=== PATIENT | female | born 1995 | race Caucasian/White ===

== ENCOUNTER → 2017-05-19 22:18 | Observation (INO) ==
[2017-05-19 19:31] VITALS: BP 120/72
[2017-05-19 20:02] LABS: Bilirubin,Urine Negative (Negative); Blood,Urine Negative (Negative); Clarity,Urine Clear (Clear); Color,Urine Yellow (Yellow); Glucose,Urine (UA) Normal (Normal); Ketones,Urine 40 mg/dL (Negative); Leukocyte Esterase,Urine Negative (Negative); Nitrite,Urine Negative (Negative); Protein,Urine Negative (Neg-Trace); Specific Gravity,Urine 1.018 (1.010-1.025); Urobilinogen,Urine Normal (Normal)
--- NOTE | 2017-05-19 20:49 | OB/GYN Progress Note ---
Date of Encounter: 05/19/17 Time of Encounter: 20:47 - Assessment and Plan (1) 35 weeks gestation of Current Visit: Yes Status: Acute (2) Cramping affecting , antepartum Current Visit: Yes Status: Acute (3) NST (non-stress test) reactive Current Visit: Yes Status: Acute Subjective - Subjective Principal diagnosis: pre-term uterine contractions Interval history: 21 y/o presents at 35w5d with c/o cramping since 1pm today, 05/19. Denies spotting or bloody discharge, endorses a small amount of scant clear fluid. + movement each hour. No other complaints. Antepartum ROS: movement normal, contractions, no loss of fluid, no vaginal bleeding Objective - Vital Signs Vital Signs: Vital Signs Temp Pulse Resp BP 05/19/17 19:29 97.8 F 72 15 120/72 Intake and Output 05/19/17 05/19/17 05/19/17 07:59 15:59 23:59 Other: Weight 64.8 kg Patient Weight 05/19/17 23:59 Weight 64.8 kg - Exam FHR: auscultation normal Auscultation: bilateral: normal Abdomen: Present: normal appearance Cervical dilation: 2 Cervix effacement: 60 station: 0 - Labs Labs: Abnormal lab results Urine Ketones 40 mg/dL (Negative) H 05/19/17 19:38
[~2017-05-19 22:18] MED LIST: *HR* Morphine 10 MG/ML VIAL SQ ONE
== END | disposition home or self-care (01) ==
LOC: 1NENULAB
PROVIDERS: ADMIT Obstetrics & Gynecology; ATTEND Obstetrics & Gynecology

== ENCOUNTER → 2017-05-22 22:59 | Observation (INO) ==
--- NOTE | 2017-05-22 22:41 | OB/GYN Progress Note ---
Date of Encounter: 05/22/17 Time of Encounter: 22:07 - Assessment and Plan (1) 36 weeks gestation of Current Visit: Yes Status: Acute (2) Cramping affecting , antepartum Current Visit: No Status: Acute Pt with minimal cervical change from office. Follow up exam unchanged from admission cervical exam. No leaking of fluid or vaginal bleeding observed by RN during vaginal exam. Discharged home with labor precautions, when to return to triage or call provider. Pt verbalizes understanding. (3) NST (non-stress test) reactive Current Visit: No Status: Acute Baseline 125 Subjective - Subjective Interval history: 36+1 presents with increasing contractions and vaginal discharge that was slightly pink in color. Pt reports good movement, or leaking of clear fluid. Antepartum ROS: new complaints, vaginal bleeding, movement normal, contractions, no loss of fluid Objective - Vital Signs Vital Signs: Intake and Output 05/22/17 05/22/17 05/22/17 07:59 15:59 23:59 Other: Weight 65.8 kg Patient Weight 05/22/17 23:59 Weight 65.8 kg - Exam FHR: auscultation normal FHR comments: 125/moderate/+accels Abdomen: Present: normal appearance, soft, gravid Cervical dilation: 380 per RN
== END | disposition home or self-care (01) ==
LOC: 1NENULAB
PROVIDERS: ADMIT Advanced Practice Midwife; ATTEND Advanced Practice Midwife

== ENCOUNTER → 2017-05-28 19:11 | Observation (INO) ==
--- NOTE | 2017-05-28 16:08 | OB/GYN Progress Note ---
Date of Encounter: 05/28/17 Time of Encounter: 16:04 - Assessment and Plan (1) 37 weeks gestation of Current Visit: Yes Status: Acute (2) Uterine contractions Current Visit: Yes Status: Acute Monitored in labor and delivery for over 3 hours no change on 2 follow up cervical exams by this CNM, cervix remains 3/80/-1. UA with reflex Baseline initially appeared with baseline of 145 after 1L bolus baseline 115 with accels. Very active fetus. BPP performed by Dr. Lopes 05/27 RENNY of 12.6 Pt still having pain with contractions. will give 10 of morphine SQ and 12.5 of phenergan IV for therapeutic rest and then discharge to home. Plan discussed with . Subjective - Subjective Interval history: complains of contractions for the last couple days increasing in strength this morning. Sent over from office for labor evaluation. Pt states they are occuring every 5 minutes and rates them 10/10 pain. breathing calmly during contractions. Reports good movement, denies vaginal bleeding, or leaking of fluid. Also denies headache, visual changes, RUQ pain, dysuria, or urgency with urination. Antepartum ROS: new complaints, movement normal, contractions, no loss of fluid, no vaginal bleeding Objective - Exam Auscultation: bilateral: normal Abdomen: Present: normal appearance, soft, gravid Uterus: Present: normal Cervical dilation: 3/80/-1
[2017-05-28 16:42] VITALS: BP 127/74
[~2017-05-28 19:11] MED LIST changes: +*HR* Promethazine 25 MG/ML VIAL IVP PRN; +Ringers Solution, Lactated 1,000 ML IVC SCH; +Ringers Solution, Lactated 1,000 ML ONE
[2017-05-28 19:16] LABS: Bilirubin,Urine Negative (Negative); Blood,Urine Negative (Negative); Clarity,Urine Clear (Clear); Color,Urine Yellow (Yellow); Glucose,Urine (UA) Normal (Normal); Ketones,Urine 15 mg/dL (Negative); Leukocyte Esterase,Urine Negative (Negative); Nitrite,Urine Negative (Negative); Protein,Urine Trace mg/dL (Neg-Trace); Urobilinogen,Urine Normal (Normal)
[2017-05-28 19:20] LABS: Bacteria,Urine None Seen per hpf (None-Few); Hyaline Casts,Urine None Seen per lpf (None-Few); RBC,Urine 0-3 per hpf (0-3); Squamous Epithelial Cell,Urine Many per lpf (None-Few); WBC,Urine 0-3 per hpf (0-3)
== END | disposition home or self-care (01) ==
LOC: 1NENULAB
PROVIDERS: ADMIT Obstetrics & Gynecology; ATTEND Obstetrics & Gynecology

== ENCOUNTER 2017-06-08 16:22 | Inpatient (IN) ==
[~2017-06-08 16:22] MED LIST changes: -*HR* Morphine 10 MG/ML VIAL SQ ONE; -*HR* Promethazine 25 MG/ML VIAL IVP PRN; +Famotidine 20 MG/2 ML VIAL IVP PRN; +Metoclopramide 10 MG/2 ML VIAL IVP PRN; +Naloxone 0.4 MG/ML INJ IVP PRN; +Ondansetron 4 MG/2 ML VIAL IVP PRN; -Ringers Solution, Lactated 1,000 ML IVC SCH; -Ringers Solution, Lactated 1,000 ML ONE
[2017-06-08] MEDS ORDERED: Ringers Solution, Lactated 1,000 ML IVC SCH (16:30)
[2017-06-08 16:36] LABS: Basophils % 0.2 %; Eosinophils % 0.1 %; Hematocrit 39.6 % (35.3-44.9); Hemoglobin 13.7 g/dL (11.5-15.4); Immature Granulocytes % 1.4 % (0-4); Lymphocytes # 1.7 K/mcL (0.6-4.6); Lymphocytes % 13.8 %; Mean Corpuscular HGB Conc 34.6 g/dL (31.6-35.5); Mean Corpuscular Hemoglobin 31.3 pg (28.0-33.3); Mean Corpuscular Volume 90.4 fL (83.0-100.0); Mean Platelet Volume 11.7 fL (9.4-12.4); Monocytes # 0.6 K/mcL (0.0-1.3); Neutrophils # 9.9 K/mcL (1.6-8.9); Platelet Count 150 K/mcL (140-400); Red Blood Count 4.38 M/mcL (3.82-4.97); Red Cell Distribution Width 12.9 % (11.5-14.5); Segmented Neutrophils % 79.5 %
--- NOTE | 2017-06-08 16:56 | OB/GYN History & Physical ---
Date of Encounter: 06/08/17 Time of Encounter: 16:48 Assessment and Plan (1) 38 weeks gestation of Current visit: Yes Status: Acute (2) SROM (spontaneous rupture of membranes) Current visit: Yes Status: Acute admit to labor and delivery, GBS negative Nubain and epidural as desires Anticipate History of Present Illness Chief complaint: Contractions and leaking fluid HPI: Ms. Colmenares is a 21 year old female presents to triage with SROM at 1400 of clear fluid, nitrizine +. Pt states contractions have been occurring for the last week. Pt states she has had decreased movement for the today and did not have movement until getting a a soda at the gas station on the way to the hospital. Labs: B+, Rubella and varicella immune, all other serologies negative. Past Med Surg Social Fam HX - Past Medical History Source: patient Medical history: non-contributory, other Psychiatric history: no psych history - Past Surgical History Surgical History: other - Social History Smoking Status: Current every day smoker Packs per day: 0.5 Smokeless Tobacco Status: No Alcohol use: none Drug use: none - Family History Mother Adopted: No Living Status: Still Living Hx Family Cardiac Disorders: No Hx Family Respiratory Disorders: No Hx Family Cancer: No Hx Family GI Disorders: No Hx Family Genitourinary Disorders: No Hx Family Endocrine Disorder: No Hx Family Musculoskeletal Disorders: No Hx Family Neuromuscular Disorders: No Hx Family Neurologic Disorders: No Hx Family HEENT Disorders: No Hx Family Autoimmune Disorders: No Hx Family Reproductive Disorders: No Hx Family Psychosocial Disorders: No Hx Family Medical Disorders: No Obstetrical History - Pregnancies : 2 Para: 1 Term: 1 : 0 Ab's: 0 Livin Medications and Allergies Formula Tablet 1 tab PO DAILY 05/19/17 [History] Promethazine 12.5 mg PO Q6H PRN 05/19/17 [History] Vistaril 06/08/17 [History] 3 Allergy/AdvReac Type Severity Reaction Status Date / Time No Known Allergies Allergy Verified 05/28/16 21:20 Exam - Constitutional Constitutional: well developed, well nourished, no acute distress, average body habitus - Neck Neck exam: full ROM - Lungs Respiratory exam: CTAB - Cardiovascular Cardiovascular exam: RRR - Abdomen Abdomen: Present: bowel sounds normal, gravid, non tender - Extremities Extremities exam: normal capillary refill, normal inspection - Cervix Dilation: 4 (Per RN) Results Result Diagrams: 06/08/17 16:25 Abnormal lab results WBC 12.5 K/mcL (4.3-11.1) H 06/08/17 16:25 Neutrophils # 9.9 K/mcL (1.6-8.9) H 06/08/17 16:25 All other labs normal. - VTE Reasons for not Prescribing Prophylaxis: Treatment not Indicated - Low risk for VTE
[2017-06-08] MEDS ORDERED: *HR* FentaNYL (PF) 100 MCG/2 ML VIAL EP ONE (16:57)
[2017-06-08] MEDS ORDERED: Ringers Solution, Lactated 500 ML IVC ONE (16:57)
[2017-06-08] MEDS ORDERED: EPHEDrine 50 MG/ML VIAL IVP PRN (16:57)
[2017-06-08] MEDS ORDERED: *HR* Ropivacaine/PF 0.2% 10 ML AMPUL EP ONE (16:57)
[2017-06-08] MEDS ORDERED: Epidural Premix (fent/bupiv) 110 ML EP SCH (17:00)
--- NOTE | 2017-06-08 17:04 | Anesthesia Evaluation PreOp ---
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 Other Medical History: Denies Any Significant HX Anesthesia History: No Prior Anesthetic Complications, Past Anesthesia ( Hysteroscopy) : Yes Alcohol Use: none Drug use: none Medications and Allergies Formula Tablet 1 tab PO DAILY 05/19/17 [History] Promethazine 12.5 mg PO Q6H PRN 05/19/17 [History] Vistaril 06/08/17 [History] 3 Allergy/AdvReac Type Severity Reaction Status Date / Time No Known Allergies Allergy Verified 05/28/16 21:20 - Meds/Allergy Pre-op Review Medications Reviewed: Yes Allergies Reviewed: Yes Anesthesia Results - Labs 06/08/17 16:25 Anesthesia Exam Height: 1.63 Weight: 66.4kg NPO (# of Hours): >4hr Pain Scale: 9 (With contractions) Pain Scale Used: Numeric (1 - 10) - HEENT Pupil (Motor): Pupils equal Mallampati: II Teeth: Poor dentition Oral Opening: Greater than 3 - CLEANING MACHINE OPERATOR LOC: Oriented CLEANING MACHINE OPERATOR Motor: Normal RUE, Normal LUE, Normal RLE, Normal LLE, Normal Face CLEANING MACHINE OPERATOR Sensory: Normal: RUE, LUE, RLE, LLE, Face - Cardiac Rhythm: Regular Murmur: None JVD: No Carotid Bruit: No - Pulmonary Breath Sounds: bilateral Clear Respiratory Effort: Symmetrical Anesthesia Assess/Plan ASA Score: 2 Modified [place] Scale for Level of Consciousness: Cooperative, oriented, and tranquil Anesthetic Plan: Regional Monitoring Plan: Standard Monitors Recovery Plan: Other
[2017-06-08] MEDS ORDERED: Epidural Premix (fent/bupiv) 110 ML EP ONE (17:08)
[2017-06-08] MEDS ORDERED: Ringers Solution, Lactated 1,000 ML ONE (17:09)
--- NOTE | 2017-06-08 17:33 | Anesthesia Procedures ---
Date of Encounter: 06/08/17 Time of Encounter: 17:10 Procedures: Anesthesia - Epidural/Spinal Patient ID/Chart reviewed: Yes Patient examined: Yes OB Eval: Gestational age: 38.6 OB Eval: : 2 OB Eval: Hx Para: 1 OB Eval: Dilated at (cm): 4 OB Eval: Contractions: Non-stressed pattern Consent Obtained: Yes Supplemental Oxygen: None/Room Air Site Prep: Aseptic Technique, Sterile prep and drape, 0.5% Chlorhexidine/Alcohol Patient position: upright Local Anesthetic: Lidocaine 1% Amount of Local Anesthetic used: 2.5 Touhy Needle Gauge: 18 Touhy Needle Depth (cm): 6 Catheter Depth at Skin (cm): 13 Test Dose (1.5% Lido + Epi): Volume given (mls): 5 Test Dose Result: Negative Loading Dose: Other: Ropivacaine 0.5% 10mL Loading Dose Administered: Thru Catheter Infusion Med: 0.125% Bupivacaine w/ 2 mcg/ml Fentanyl Infusion Rate (mls/hr): 15 (Bolus 5mL q15min; Max 3/hr) Catheter Secured in Place: Tegaderm, Tape Interspace Used: L3-L4 Loss of Resistance (ANDREAS): Yes Blood: No CSF: No Paresthesia: No Procedure: x1 attempt. Patient tolerated well. Vitals + FHT's: VSS and FHR stable throughout. See nursing documentation.
[2017-06-08] MEDS ORDERED: Oxytocin 20 units/ LR 1000 mL 20 UNIT/1,000 ML BAG IVC ONE (18:28)
--- NOTE | 2017-06-08 18:28 | OB Labor Progress Note ---
Date of Encounter: 06/08/17 Time of Encounter: 18:26 Labor Progress Note - Subjective Subjective: pt comfortable with epidural - Cervix Cervix: Remains 4 per RN - Heart Tones Heart Tones: 110/moderate/+accels/-decels - [place]: 3-10 - Plan Plan: Will start pitocin per policy Anticipate
[2017-06-08] MEDS ORDERED: Oxytocin 20 units/ LR 1000 mL 20 UNIT/1,000 ML BAG IVC SCH ×2 (18:30→23:36)
[2017-06-08] MEDS ORDERED: *HR* FentaNYL (PF) 100 MCG/2 ML VIAL ONE (20:54)
--- NOTE | 2017-06-08 23:34 | OB/GYN Procedure Note ---
Delivery - Delivery Date: 06/08/17 Provider: Lexy Ornelas Intrapartum events: none Delivery augmentation: pitocin Delivery monitor: external FHT, external uterine Anesthesia: epidural Estimated Blood Loss: 100 - (s) Infant A Infant Delivery Date: 06/08/17 Infant Delivery Time: 23:10 Presentation: vertex Position: OA Route of delivery: Gender: Male Viability: Viable Pounds: 7 Ounces: 9 Weight Gram: 3435 kg at 1 minute: 8 at 5 mins: 9 Shoulder Dystocia: encountered Shoulder Dystocia Maneuvers: Cinthia maneuver Specimens collected: cord blood Placenta: spontaneous Cord: 3 umbilical vessels, other (short cord) - Repair Episiotomy: none Laceration Description: None - Complications Delivery complications: none Delivery comments: SROM with pitocin augmentation, progressed to complete, directed maternal bearing down efforts to of liveborn male, Vertex delivered OA, shoulders delivered after maternal repositioning to Cinthia and body easily followed. No nuchal cord encountered. short cord noted, so immediately clammped and cut then vigorous placed on maternal abdomen. Placenta delivered spontaneously (juliann), Perineum intact. EBL 100, mother and infant left bonding in skin to skin. - Disposition Mom disposition: stable in LDR [place] disposition: stable in LDR
[2017-06-08] MEDS ORDERED: Lanolin 7 G OINT...G. TP PRN (23:36)
[2017-06-08] MEDS ORDERED: Acetaminophen 325 MG TABLET PO PRN (23:36)
[2017-06-08] MEDS ORDERED: Benzocaine/Menthol 56 GM AEROSOL SPRAY TP PRN (23:36)
[2017-06-08] MEDS ORDERED: *HR* HYDROcodone/Acet 5/325 mg TABLET PO PRN (23:36)
[2017-06-09] MEDS ORDERED: Ringers Solution, Lactated 1,000 ML ONE (08:10)
[2017-06-09] MEDS ORDERED: ceFAZolin 2,000 MG in D5% in Water 100 ML IVPB ONE (08:11)
--- NOTE | 2017-06-09 08:15 | OB/GYN Progress Note ---
Date of Encounter: 06/09/17 Time of Encounter: 08:10 - Assessment and Plan (1) Status post normal vaginal delivery Current Visit: Yes Status: Acute (2) Family planning advice Current Visit: Yes Status: Acute Patient will be scheduled for bilateral partial salpingectomy this morning Subjective - Subjective Interval history: Patient still desires tubal ligation has been nothing by mouth since midnight. States having minimal cramping and minimal bleeding. Risks and benefits of the tubal ligation was expanded to patient with a failure rate of 5-8 per thousand with increased risk of ectopic if was to occur Patient reports: voiding normally, pain well controlled [place]: doing well Objective - Latest Vital Signs Latest vital signs: Vital Signs Temp Pulse Resp BP Pulse Ox 06/09/17 03:25 98.2 F 51 14 122/76 98 06/09/17 02:15 98.5 F 56 16 146/90 98 06/09/17 01:27 98.4 F 56 18 146/87 99 Intake and Output 06/08/17 06/09/17 06/09/17 23:59 07:59 15:59 Output Total 975 / 975 900 / 900 Balance -975 / -975 -900 / -900 Output: Urine 875 / 875 900 / 900 Estimated Blood Loss 100 / 100 Other: Weight 66.4 kg - Exam Lungs: bilateral: normal Chest: Normal S1, Normal S2 Extremities: Present: normal Abdomen: Present: normal appearance Uterus: Present: normal Uterus Position: At Umbilicus - Labs Labs: Laboratory Results - last 24 hr 06/08/17 16:25 WBC 12.5 H RBC 4.38 Hgb 13.7 Hct 39.6 MCV 90.4 MCH 31.3 MCHC 34.6 RDW 12.9 Plt Count 150 MPV 11.7 Immature Gran % 1.4 Seg Neutrophils % 79.5 Lymphocytes % 13.8 Monocytes % 5.0 Eosinophils % 0.1 Basophils % 0.2 Neutrophils # 9.9 H Lymphocytes # 1.7 Monocytes # 0.6 Eosinophils # 0.0 Basophils # 0.0
--- NOTE | 2017-06-09 08:18 | Anesthesia Evaluation PreOp ---
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 Other Medical History: Denies Any Significant HX, Other (anxiety) Anesthesia History: No Prior Anesthetic Complications, Past Anesthesia ( hysteroscopy for endometriosis, previous epidural with labor) : No Alcohol Use: none Drug use: none Medications and Allergies Formula Tablet 1 tab PO DAILY 05/19/17 [History] Promethazine 12.5 mg PO Q6H PRN 05/19/17 [History] Vistaril 06/08/17 [History] 3 Allergy/AdvReac Type Severity Reaction Status Date / Time No Known Allergies Allergy Verified 05/28/16 21:20 - Meds/Allergy Pre-op Review Medications Reviewed: Yes Allergies Reviewed: No Beta Blockers on Current Med List: No Anesthesia Results - Labs 06/08/17 16:25 Anesthesia Exam Vital Signs Temperature 98.4 F 06/09/17 01:27 Pulse Rate 56 06/09/17 01:27 Respiratory Rate 18 06/09/17 01:27 Blood Pressure 146/87 06/09/17 01:27 O2 Sat by Pulse Oximetry 99 06/09/17 01:27 Temperature 98.0 F 06/09/17 07:30 Pulse Rate 45 06/09/17 07:30 Respiratory Rate 16 06/09/17 07:30 Blood Pressure 137/82 06/09/17 07:30 O2 Sat by Pulse Oximetry 98 06/09/17 03:25 Height: 5'4" Weight: 66.4kg NPO (# of Hours): 8 Pain Scale: 0 Pain Scale Used: Numeric (1 - 10) - HEENT Pupil (Motor): Pupils equal Mallampati: II Teeth: Poor dentition Oral Opening: Greater than 3 - RIBBON WINDER LOC: Oriented RIBBON WINDER Motor: Normal RUE, Normal LUE, Normal RLE, Normal LLE, Normal Face RIBBON WINDER Sensory: Normal: RUE, LUE, RLE, LLE, Face - Cardiac Rhythm: Regular Murmur: None JVD: No Carotid Bruit: No - Pulmonary Breath Sounds: bilateral Clear Respiratory Effort: Symmetrical Anesthesia Assess/Plan ASA Score: 2 Modified [place] Scale for Level of Consciousness: Cooperative, oriented, and tranquil Anesthetic Plan: General Monitoring Plan: Standard Monitors Recovery Plan: PACU
[2017-06-09] MEDS ORDERED: Ondansetron 4 MG/2 ML VIAL ONE (08:22)
[2017-06-09] MEDS ORDERED: Dexamethasone 4 MG/ML VIAL ONE (08:22)
[2017-06-09] MEDS ORDERED: *HR* Midazolam HCl 2 MG/2 ML VIAL ONE (08:22)
[2017-06-09] MEDS ORDERED: *HR* Propofol 200 MG/20 ML VIAL IVP ONE (08:23)
[2017-06-09] MEDS ORDERED: *HR* FentaNYL (PF) 100 MCG/2 ML VIAL ONE (08:23)
[2017-06-09] MEDS ORDERED: Lidocaine -MPF 2% 5 ML VIAL ONE (08:24)
[2017-06-09] MEDS ORDERED: Famotidine 20 MG/2 ML VIAL ONE (08:39)
[2017-06-09] MEDS ORDERED: Prenatal Vit/FA 1 EACH TABLET PO SCH (09:00)
[2017-06-09] MEDS ORDERED: Ketorolac 30 MG/ML VIAL ONE (09:11)
[2017-06-09] MEDS ORDERED: Ondansetron 4 MG/2 ML VIAL IVP ONE (09:40)
[2017-06-09] MEDS ORDERED: *HR* Promethazine 25 MG/ML VIAL IVP PRN (09:40)
[2017-06-09] MEDS ORDERED: Ringers Solution, Lactated 1,000 ML IVC SCH (09:45)
[2017-06-09] MEDS: *HR* HYDROmorphone (PF) 1 MG/ML SYRINGE IVP PRN ×2 (09:52→10:05)
[2017-06-09] MEDS ORDERED: Acetaminophen 325 MG TABLET PO PRN (10:34)
[2017-06-09] MEDS ORDERED: *HR* HYDROcodone/Acet 5/325 mg TABLET PO PRN (10:34)
[2017-06-09] MEDS ORDERED: Lanolin 7 G OINT...G. TP PRN (10:34)
[2017-06-09 12:33] VITALS: BP 128/89
--- NOTE | 2017-06-09 13:10 | Anesthesia Evaluation Post Op ---
Date of Encounter: 06/09/17 Time of Encounter: 13:09 - Vital Signs Vital Signs: Vital Signs Temperature 98.4 F 06/09/17 01:27 Pulse Rate 56 06/09/17 01:27 Respiratory Rate 18 06/09/17 01:27 Blood Pressure 146/87 06/09/17 01:27 O2 Sat by Pulse Oximetry 99 06/09/17 01:27 Temperature 97.7 F 06/09/17 12:30 Pulse Rate 55 06/09/17 12:30 Respiratory Rate 16 06/09/17 12:30 Blood Pressure 128/89 06/09/17 12:30 O2 Sat by Pulse Oximetry 100 06/09/17 10:30 - Lungs Lungs: Clear Ascult./Percussion - Airway Airway: Non-obstructed - Cardiovascular Regular Rate - Mental Status Mental Status: Alert & Oriented, Answers Appropriately - Pain Pain Scale: 2 Pain Scale used: Numeric (1 - 10) - Nausea Vomiting Nausea Vomiting: Not Present - Hydration Hydration: Ice chips - Discharge PostOp Status: Transfer Patient to floor
--- NOTE | 2017-06-09 13:26 | Operative Note ---
Date of procedure: 06/09/17 Pre-op diagnosis: Status post vaginal delivery, desires sterilization Post-op diagnosis: same Procedure: Bilateral partial salpingectomy Complications: none Anesthesia: ALKAA Surgeon: Talon Small Tie Inspector: Alec Freitas ([id number]) Estimated blood loss (cc): 10 Specimen: Portions of the right and left fallopian tube Condition: stable Disposition: other Procedure in Detail: Patient is a 21-year-old female status post vaginal delivery who desired a tubal ligation. Risks and benefits of the tubal were explained to the patient with failure rate of 5-8 per thousand with increased risk of ectopic if was to occur. Procedure: Patient was taken to the operating room and general anesthesia was found be adequate. She was placed in the doral supine position prepped and draped in usual fashion. Timeout was obtained. A small infraumbilical incision was made with a scalpel and carried down through the underlying tissue and fascia was identified tented up and entered sharply. This was extended laterally properitoneum was identified tented up and entered sharply. 2 [employer] [place] retractors were placed through the incision the right fallopian tube was identified and grasped and brought through the incision carried out to the fimbriated end. Using an 0 plain and the distal portion of the tube including the fimbria were then suture ligated 2 before that portion of the tube was removed. Good hemostasis was noted to tube was returned to the abdomen. In a similar fashion left side was identified and grasped both through the incision followed out to the fimbriated end. In a similar fashion the distal end of the tube was then suture ligated with oh plain 2 before the portion of the tube including the fimbria was removed. Good hemostasis was noted both ovaries appeared to be normal and the tube was returned to the abdomen. The fascia was closed using 0 Vicryl in a running stitch and the skin was closed using 4-0 Vicryl in subcuticular manner. Dermabond over the surface. All needles and sponge counts were correct 3
--- NOTE | 2017-06-09 15:06 | Discharge Summary ---
Date of Encounter: 06/09/17 Time of Encounter: 15:09 - Discharge Diagnosis (1) Vaginal delivery Priority: Primary Status: Acute Comments: Doing well s/p day 1 vaginal delivery Discharge home today Follow up in office in 6 weeks or earlier if needed for care/family planning (2) Status post tubal ligation Priority: Primary Status: Acute Comments: Doing well day of tubal ligation Discharge home today Pain well controlled with ordered medication, will provide Rx for norco. OARRS reviewed and appropriate to Rx. Follow up in the office with Dr Small in 2 weeks. - Discharge Medications Prescriptions: HYDROcodone/Acet 5/325 mg [[place] 5-325 mg] 1 tab PO Q6H PRN #30 tab PRN Reason: Moderate Pain (4-6) Home Medications: Formula Tablet 1 tab PO DAILY 05/19/17 [History] Promethazine 12.5 mg PO Q6H PRN 05/19/17 [History] HYDROcodone/Acet 5/325 mg [[place] 5-325 mg] 1 tab PO Q6H PRN #30 tab 06/09/17 [Rx ] Lanolin [Lansinoh] 1 appl TP QID PRN 06/09/17 [Rx] Vit/FA 1 each PO DAILY tab 06/09/17 [Rx] Allergies/Adverse Reactions: 3 Allergy/AdvReac Type Severity Reaction Status Date / Time No Known Allergies Allergy Verified 05/28/16 21:20 Data Procedures and tests throughout hospitalization: Laboratory Tests 06/08/17 16:25 WBC 12.5 H RBC 4.38 Hgb 13.7 Hct 39.6 MCV 90.4 MCH 31.3 MCHC 34.6 RDW 12.9 Plt Count 150 MPV 11.7 Immature Gran % 1.4 Seg Neutrophils % 79.5 Lymphocytes % 13.8 Monocytes % 5.0 Eosinophils % 0.1 Basophils % 0.2 Neutrophils # 9.9 H Lymphocytes # 1.7 Monocytes # 0.6 Eosinophils # 0.0 Basophils # 0.0 Labs on day of discharge: Labs from last 24 hours 06/08/17 16:25 WBC 12.5 H RBC 4.38 Hgb 13.7 Hct 39.6 MCV 90.4 MCH 31.3 MCHC 34.6 RDW 12.9 Plt Count 150 MPV 11.7 Immature Gran % 1.4 Seg Neutrophils % 79.5 Lymphocytes % 13.8 Monocytes % 5.0 Eosinophils % 0.1 Basophils % 0.2 Neutrophils # 9.9 H Lymphocytes # 1.7 Monocytes # 0.6 Eosinophils # 0.0 Basophils # 0.0 Date of admission: 06/08/17 16:22 Primary care physician: PCP NONE Discharging clinician: Merle Guerra Anticipated date of discharge: 06/09/17 - Patient Status Disposition: Home, Self-Care Condition: Good Functional capacity at discharge: independent ambulation Overall status at discharge: patient is progressing back to baseline - Discharge Instructions Follow Up With: NONE,PCP [Primary Care Provider] - Talon Small DO [Partnered Physician] - (2 weeks for BPS follow up) eMrle Guerra CNM [Advanced Practice Nurse] - ( follow - up) - Diet and Activity Activity: increase activity as tolerated Diet: regular diet 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 Time spent discussing smoking cessation with patient: 3 to 10 minutes Time Attestation: Total time spent providing and/or coordinating discharge services: Time Spent: Less than 30 minutes Exam - Constitutional Vitals: Temp Pulse Resp BP Pulse Ox 97.7 F 55 16 128/89 100 06/09/17 12:30 06/09/17 12:30 06/09/17 12:30 06/09/17 12:30 06/09/17 10:30 General appearance IM: cooperative, A&O X 3, pleasant - Respiratory Respiratory exam: Present: CTAB - Cardiovascular Cardiovascular exam IM: Present: RRR, +S1, +S2 - GI/Abdominal GI/Abdominal exam IM: normal bowel sounds, soft - Uterine Tone: Firm Uterus Position: At Umbilicus, Midline - Extremities Exam Extremities exam IM: Present: normal capillary refill, normal inspection, radial pulses palpable and symmetrical - Neurological Exam Neurological exam: alert, oriented X3 - VTE Reasons for not Prescribing Prophylaxis: Treatment not Indicated - Low risk for VTE Documentation of Mechanical Device: Intermittent pneumatic compression device
[2017-06-10] MEDS ORDERED: Prenatal Vit/FA 1 EACH TABLET PO SCH (09:00)
[2017-06-10] MEDS ORDERED: NON-FORMULARY MEDICATION 1 EACH EACH (Prenatal Formula Tablet 1 TAB) PO SCH (09:00)
== END 2017-06-09 16:46 | disposition home or self-care (01) | DRG 541 ==
LOC: 1NENULAB → 1NENUOBS 06-09 01:30
PROVIDERS: ADMIT Advanced Practice Midwife; ATTEND Advanced Practice Midwife